=== PATIENT | male | born 2000 | race Two or more races ===

== ENCOUNTER 2019-04-19 07:56 | Emergency (ER) | payer OTHER ==
[2019-04-19 08:10] VITALS: BP 104/70
--- NOTE | 2019-04-19 10:00 | UC ---
Skin Complaint HPI - HPI Summary HPI Summary: PATIENT WOKE UP THIS MORNING WITH A BUMPY, RED, ITCHY RASH ON HIS BACK. NO TONGUE/LIP SWELLING. NO RESPIRATORY INVOLVEMENT. NO NEW LOTIONS, SOAPS, DETERGENTS. HE DID EAT A NEW KIND OF ICE CREAM LAST NIGHT. HAS ALSO BEEN TAKING MINOCYCLINE TWICE DAILY FOR APPROXIMATELY 2 WEEKS PER DERMATOLOGY FOR A RASH ON HIS HEAD. HE WAS OUTSIDE WITH HIS SHIRT OFF A DAY OR 2 AGO. HAS DERMATOLOGY FOLLOW-UP IN 3 DAYS. - History of Current Complaint Chief Complaint: UCRash Time Seen by Provider: 04/19/19 09:31 Stated Complaint: RASH Hx Obtained From: Patient, Family/Director Of Testing - MOM Onset/Duration: Sudden Onset, Lasting Hours, Still Present Timing: Constant Onset Severity: Moderate Current Severity: Moderate Pain Intensity: 0 Pain Scale Used: 0-10 Numeric Location: Other - BACK Character: Pruritus, Redness Aggravating Factor(s): Touch Alleviating Factor(s): Nothing Associated Signs & Symptoms: Positive: Rash Related History: Recent change in medication - Allergy/Home Medications Allergies/Adverse Reactions: Allergies Allergy/AdvReac Type Severity Reaction Status Date / Time seasonal Allergy Eyes Uncoded 04/19/19 08:10 Itchy/Swollen/Red/Watery Home Medications: Home Medications Brimonidine/Timolol OPTH(NF) [Combigan OPHTH (NF)] 1 drop DAILY 04/19/19 [ History Confirmed 04/19/19] Loteprednol 0.5% OPH.SUSP(NF) [Lotemax 0.5% OPH.SUSP (NF)] 1 % BOTH EYES DAILY 04/19/19 [History Confirmed 04/19/19] Minocycline (NF) 1 tab PO DAILY 04/19/19 [History Confirmed 04/19/19] PMH/Surg Hx/FS Hx/Imm Hx - Additional Past Medical History Additional PMH: CORNEAL TRANSPLANT Other History Of: Negative For: HIV, Hepatitis B, Hepatitis C, Anticoagulant Therapy - Surgical History Surgical History: Yes Surgery Procedure, Year, and Place: cornea transplant,crosslinking - Family History Known Family History: Positive: Diabetes Negative: Cardiac Disease, Hypertension, Renal Disease - Social History Alcohol Use: None Substance Use Type: None Smoking Status (MU): Never Smoked Tobacco Have You Smoked in the Last Year: No - Immunization History Vaccination Up to Date: Yes Review of Systems All Other Systems Reviewed And Are Negative: Yes Constitutional: Positive: Negative Skin: Positive: Rash Respiratory: Positive: Negative Cardiovascular: Positive: Negative Gastrointestinal: Positive: Negative Physical Exam Triage Information Reviewed: Yes Appearance: Well-Appearing, No Pain Distress, Well-Nourished Vital Signs: Initial Vital Signs Temp 98.5 F 04/19/19 08:07 Pulse 84 04/19/19 08:07 Resp 16 04/19/19 08:07 BP 104/70 04/19/19 08:07 Pulse Ox 100 04/19/19 08:07 Vital Signs Reviewed: Yes Eyes: Positive: Conjunctiva Clear ENT: Positive: Hearing grossly normal Neck: Positive: Supple Respiratory: Positive: No respiratory distress, No accessory muscle use Cardiovascular: Positive: Pulses Normal Abdomen Description: Positive: Soft Musculoskeletal: Positive: No Edema Neurological: Positive: Alert Psychological: Positive: Age Appropriate Behavior Skin: Positive: Rashes - RAISED, PAPULAR, ERYTHEMATOUS RASH DIFFUSELY OVER PATIENTS BACK Course/Dx - Course Course Of Treatment: PATIENT'S RASH APPEARS TO BE INFLAMMATORY/ALLERGIC IN ETIOLOGY. WILL COVER WITH PREDNISONE AND TOPICAL STEROID. HAVE ALSO ADVISED ANTIHISTAMINES. HE RECENTLY STARTED TAKING MINOCYCLINE TWICE DAILY FOR A RASH ON HIS HEAD. IT'S POSSIBLE HE IS ALLERGIC TO THIS MEDICATION. HE WAS ALSO OUT IN THE [place] A DAY OR 2 AGO AND HE MAY BE HAVING A PHOTOTOXIC REACTION. HE HAS A DERMATOLOGY APPOINTMENT FOR FOLLOW-UP IN 3 DAYS. I'VE ADVISED HIM TO DISCUSS THIS FURTHER WITH HIS DERMATOLOGY PROVIDER. IF THE RASH SPREADS TO OTHER AREAS OF HIS BODY OR GETS WORSE HE IS TO STOP THE MEDICATION IMMEDIATELY. - Diagnoses Provider Diagnosis: Dermatitis Discharge - Sign-Out/Discharge Documenting (check all that apply): Patient Departure All imaging exams completed and their final reports reviewed: No Studies - Discharge Plan Condition: Stable Disposition: HOME Prescriptions: predniSONE TAB* [Deltasone TAB*] 50 mg PO DAILY #5 tab Triamcinolone 0.1% CREAM(NF) [Kenalog Cream 0.1%(NF)] 1 applic TOPICAL TID PRN # 1 tube PRN Reason: Itching Patient Education Materials: Dermatitis (ED) Referrals: Elba Clarke [Medical Doctor] - (KEEP YOUR APPOINTMENT ON 04/22/19) Additional Instructions: YOUR RASH MAY BE DUE TO ALLERGIC REACTION OR PHOTOSENSITIVITY CAUSED BY MINOCYCLINE. KEEP YOUR DERMATOLOGY APPOINTMENT IN 3 DAYS FOR REEVALUATION. IF THE RASH SPREADS STOP THE MEDICATION. USE DAILY HYPOALLERGENIC MOISTURIZING LOTION TAKE PREDNISONE DAILY PRESCRIBED AVOID HEAT AND HOT WATER TAKE OTC ANTIHISTAMINE DAILY (CLARITIN (LORATADINE), ZYRTEC (CETIRIZINE) OR SIOBHAN (FEXOFENADINE) IN THE MORNING, 25-50MG BENADRYL AT NIGHT) DO NOT SCRATCH KEEP COOL, CLEAN AND DRY USE TOPICAL STEROID SPARINGLY 2-3 TIMES DAILY ON ITCHY SPOTS. KEEP AWAY FROM MUCOUS MEMBRANES. GO TO THE ED WITHOUT FAIL IF YOU DEVELOP ANY RESPIRATORY INVOLVEMENT, TONGUE/ LIP SWELLING, FEVER, NAUSEA/VOMITING OR ANY OTHER CONCERNING SYMPTOMS. IF YOU HAVE RECURRENT SYMPTOMS CONSIDER EVAL BY AN VASCULAR TECHNICIAN. [facility] Address: [facility] Dina Daniel, [place] [address] [facility] [address] [place], [place] [address]guillermo [address] [place], [place] [address] - Billing Disposition and Condition Condition: STABLE Disposition: Home
== END 2019-04-19 10:01 | disposition home or self-care (01) ==
LOC: UCEAST 07:56
DX: L30.9 Dermatitis, unspecified (principal)
CPT/HCPCS: 99212; G0463